=== PATIENT | female | born 1955 | race American Indian/Alaskan Native ===

== ENCOUNTER 2021-04-19 09:33 | Emergency (ER) | payer SELFPAY ==
[2021-04-19 09:49] VITALS: BP 144/71
--- NOTE | 2021-04-19 10:20 | Emergency Department Report ---
ED Lower Extremity HPI - General Chief Complaint: Extremity Problem,Nontraumatic Stated Complaint: LEG PAIN Time Seen by Provider: 04/19/21 09:52 Source: patient Mode of arrival: Ambulatory Limitations: No Limitations ED Review of Systems ROS: Stated complaint: LEG PAIN Other details as noted in HPI Comment: All other systems reviewed and negative ED Physical Exam - General Limitations: No Limitations General appearance: alert, in no apparent distress - Head Head exam: Present: atraumatic, normocephalic - Eye Eye exam: Present: normal appearance - ENT ENT exam: Present: mucous membranes moist - Neck Neck exam: Present: normal inspection - Respiratory Respiratory exam: Present: normal lung sounds bilaterally. Absent: respiratory distress - Cardiovascular Cardiovascular Exam: Present: regular rate, normal rhythm. Absent: systolic murmur, diastolic murmur, rubs, gallop - GI/Abdominal GI/Abdominal exam: Present: soft, normal bowel sounds - Extremities Exam Extremities exam: Present: normal inspection - Back Exam Back exam: Present: normal inspection - Neurological Exam Neurological exam: Present: alert, oriented X3 - Psychiatric Psychiatric exam: Present: normal affect, normal mood - Skin Skin exam: Present: warm, dry, intact, normal color. Absent: rash ED Course Vital Signs 04/19/21 09:47 Temperature 97.9 F Pulse Rate 74 Respiratory 20 Rate Blood Pressure 144/71 O2 Sat by Pulse 99 Oximetry Critical care attestation.: If time is entered above; I have spent that time in minutes in the direct care of this critically ill patient, excluding procedure time. ED Disposition Disposition: 01 HOME / SELF CARE / HOMELESS Is pt being admited?: No Does the pt Need Aspirin: No Condition: Stable Time of Disposition: 10:19
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
--- NOTE | 2021-04-19 12:09 | Cat Scan Report ---
. CT head/brain wo con INDICATION / CLINICAL INFORMATION: 65 years Female; ams. TECHNIQUE: Routine CT head without contrast. All CT scans at this location are performed using CT dos e reduction for ALARA by means of automated exposure control. COMPARISON: None. FINDINGS: BRAIN / INTRACRANIAL CONTENTS: No acute hemorrhage, mass effect, midline shift, hydrocephalus, or acu te, large territorial infarct. No signs of significant atrophy or chronic infarct. No significant whi te matter abnormality seen. CRANIOCERVICAL JUNCTION: No significant abnormality. ORBITS: No significant abnormality of visualized orbits. SINUSES / MASTOIDS: Visualized paranasal sinuses and mastoid air cells are essentially clear. ADDITIONAL FINDINGS: Significant, bilateral temporomandibular joint disease seen, as evidenced by fla ttening and irregularity of the condylar heads of the mandible. IMPRESSION: 1. No focal mass, hemorrhage, hydrocephalus, or acute, large territorial infarct. Signer Name: Brooks Day MD, III Signed: 04/19/2021 12:04 PM Workstation Name: [id number]
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
[2021-04-19 13:04] LABS: Basophils % (Auto) 0.2 % (0.0-1.8); Eosinophils # (Auto) 0.1 K/mm3 (0.0-0.4); Eosinophils % (Auto) 1.1 % (0.0-4.3); Hemoglobin 12.9 gm/dl (10.1-14.3); Lymphocytes # (Auto) 1.5 K/mm3 (1.2-5.4); Lymphocytes % (Auto) 17.6 % (13.4-35.0); Mean Corpuscular HGB Conc 32 % (30-34); Mean Corpuscular Volume 87 fl (79-97); Monocytes # (Auto) 0.6 K/mm3 (0.0-0.8); Monocytes % (Auto) 6.7 % (0.0-7.3); Platelet Count 295 K/mm3 (140-440); Red Cell Distribution Width 15.2 % (13.2-15.2)
[2021-04-19 13:14] LABS: Alanine Aminotransferase 11 units/L (7-56); Albumin 4.1 g/dL (3.9-5); BUN/Creatinine Ratio 14; Blood Urea Nitrogen 11 mg/dL (7-17); Calcium 9.4 mg/dL (8.4-10.2); Hemolysis Index 3
[2021-04-19] MEDS ORDERED: cephALEXin 500 MG CAP PO ONE (13:19)
== END 2021-04-19 19:38 | disposition home or self-care (01) ==
LOC: ED 09:33
DX: N39.0 Urinary tract infection, site not specified (principal); R41.0 Disorientation, unspecified
CPT/HCPCS: 36415; 70450; 80053; 85025; 99284

== ENCOUNTER 2021-04-19 21:11 | Emergency (ER) | payer MEDICAID ==
[2021-04-19 23:47] VITALS: BP 136/74
[2021-04-20] MEDS ORDERED: predniSONE 20 MG TAB PO ONE (00:06)
[2021-04-20] MEDS ORDERED: BENZONATATE 100 MG CAP PO ONE (00:06)
--- NOTE | 2021-04-20 00:33 | XRay Report ---
CHEST 1 VIEW INDICATION: cough. COMPARISON: None. FINDINGS: Support devices: None. Heart: Normal. Lungs/Pleura: No acute pulmonary or pleural findings. IMPRESSION: 1. No acute findings. Signer Name: Mohamud Galindo MD Signed: 04/20/2021 12:29 AM Workstation Name: [id number]
[2021-04-20] MEDS ORDERED: ACETAMINOPHEN 500 MG TAB PO ONE (01:25)
--- NOTE | 2021-04-20 01:31 | Emergency Department Report ---
- General Chief Complaint: Upper Respiratory Infection Stated Complaint: CHEST PAIN Source: patient Mode of arrival: Ambulatory Limitations: No Limitations - History of Present Illness Initial Comments: Patient is a 65-year-old -[place] female with no past medical history who presents to the ED with complaint of acute onset persistent nasal and sinus congestion, frontal sinus pressure, fever and chills and persistent dry cough for the last 1 week, worse in the last 2 days. Patient states that she has not been able to sleep because of persistent cough and nasal and sinus congestion. Patient denies dizziness, syncope, chest pain or shortness of breath, nausea and vomiting, diarrhea, dysuria, urinary frequency and urgency, back pain or sore throat. MD Complaint: fever, cough, rhinorrhea, nasal congestion -: Sudden, week(s) (1) Severity: moderate Severity scale (0 -10): 4 Quality: dull, aching Consistency: constant Improves With: nothing Worsens With: nothing Associated Symptoms: denies other symptoms, fever, chills, myalgias, rhinorrhea, nasal congestion. denies: diaphoresis, headache, sore throat, stiff neck, chest pain, shortness of breath, abdominal pain, nausea, vomiting, diarrhea, dysuria, rash, confusion, right sweats, epistaxis, hoarseness, other Treatments Prior to Arrival: none - Related Data Previous Rx's Medication Instructions Recorded Last Taken Type Acetaminophen [Tylenol] 500 mg PO Q6HR PRN #30 tablet 04/20/21 Unknown Rx Azithromycin [Zithromax Z-SOCORRO] 250 mg PO DAILY #6 tab 04/20/21 Unknown Rx Benzonatate [Tessalon Perles] 100 mg PO Q8HR #30 cap 04/20/21 Unknown Rx Cetirizine HCl [Zyrtec 10mg tab] 10 mg PO DAILY #30 tab 04/20/21 Unknown Rx predniSONE [Deltasone] 40 mg PO QDAY #10 tab 04/20/21 Unknown Rx Allergies Allergy/AdvReac Type Severity Reaction Status Date / Time aspirin Allergy Rash Verified 04/19/21 23:24 ED Review of Systems ROS: Stated complaint: CHEST PAIN Other details as noted in HPI Constitutional: fever, malaise, weakness. denies: chills Eyes: denies: eye pain, eye discharge, vision change ENT: congestion. denies: ear pain, throat pain Respiratory: cough. denies: shortness of breath, wheezing Cardiovascular: denies: chest pain, palpitations Endocrine: no symptoms reported Gastrointestinal: denies: abdominal pain, nausea, vomiting, diarrhea Genitourinary: denies: urgency, dysuria, discharge Musculoskeletal: denies: back pain, joint swelling, arthralgia Skin: denies: rash, lesions Neurological: denies: headache, weakness, paresthesias Psychiatric: denies: anxiety, depression Hematological/Lymphatic: denies: easy bleeding, easy bruising ED Past Medical Hx - Past Medical History Previous Medical History?: No - Surgical History Past Surgical History?: No - Medications Home Medications: Home Medications Medication Instructions Recorded Confirmed Last Taken Type Acetaminophen [Tylenol] 500 mg PO Q6HR PRN #30 tablet 04/20/21 Unknown Rx Azithromycin [Zithromax Z-SOCORRO] 250 mg PO DAILY #6 tab 04/20/21 Unknown Rx Benzonatate [Tessalon Perles] 100 mg PO Q8HR #30 cap 04/20/21 Unknown Rx Cetirizine HCl [Zyrtec 10mg tab] 10 mg PO DAILY #30 tab 04/20/21 Unknown Rx predniSONE [Deltasone] 40 mg PO QDAY #10 tab 04/20/21 Unknown Rx ED Physical Exam - General Limitations: No Limitations General appearance: alert, in no apparent distress - Head Head exam: Present: atraumatic, normocephalic, normal inspection - Eye Eye exam: Present: normal appearance, PERRL, EOMI Pupils: Present: normal accommodation - ENT ENT exam: Present: normal orophraynx, mucous membranes moist, normal external ear exam, other (Grossly congested nasal passages) - Neck Neck exam: Present: normal inspection, full ROM. Absent: tenderness - Respiratory Respiratory exam: Present: normal lung sounds bilaterally. Absent: respiratory distress, wheezes, rales, rhonchi, chest wall tenderness, accessory muscle use, decreased breath sounds, prolonged expiratory - Cardiovascular Cardiovascular Exam: Present: regular rate, normal rhythm, normal heart sounds. Absent: systolic murmur, diastolic murmur, rubs, gallop - GI/Abdominal GI/Abdominal exam: Present: soft, normal bowel sounds. Absent: distended, tenderness, guarding, rebound, hyperactive bowel sounds, hypoactive bowel sounds, mass - Extremities Exam Extremities exam: Present: normal inspection, full ROM, normal capillary refill. Absent: tenderness - Back Exam Back exam: Present: normal inspection, full ROM. Absent: tenderness, CVA tender ness (R), CVA tenderness (L), muscle spasm, paraspinal tenderness, vertebral tenderness - Neurological Exam Neurological exam: Present: alert, oriented X3, CN II-XII intact, normal gait, reflexes normal - Psychiatric Psychiatric exam: Present: normal affect, normal mood - Skin Skin exam: Present: warm, dry, intact, normal color. Absent: rash ED Course Vital Signs 04/19/21 04/20/21 23:24 01:35 Temperature 100.6 F H Pulse Rate 95 H Respiratory 20 14 Rate Blood Pressure 136/74 [Right] O2 Sat by Pulse 97 Oximetry ED Medical Decision Making - Radiology Data Radiology results: report reviewed, image reviewed [facility] [address] [place] [address] XRay Report Signed Patient: SHAQUILLE PERRY MR#: [id number] 9 : 1955 Acct:[id number] Age/Sex: 65 / F ADM Date: 04/19/21 Loc: ED Attending Dr: Ordering Physician: VENTURA EVANS Date of Service: 04/20/21 Procedure(s): XR chest 1V ap Accession Number(s): [id number] cc: VENTURA EVANS Fluoro Time In Minutes: CHEST 1 VIEW INDICATION: cough. COMPARISON: None. FINDINGS: Support devices: None. Heart: Normal. Lungs/Pleura: No acute pulmonary or pleural findings. IMPRESSION: 1. No acute findings. Signer Name: Mohamud Galindo MD Signed: 04/20/2021 12:29 AM Workstation Name: [id number] Transcribed By: CHANTEL Dictated By: Mohamud Galindo MD Electronically Authenticated By: Mohamud Galindo MD Signed Date/Time: 04/20/2128 DD/ TD/TT: - Medical Decision Making This is a 65-year-old -[place] female with no past medical history who presents to the ED with complaint of acute onset persistent nasal and sinus congestion, frontal sinus pressure, fever and chills and persistent dry cough for the last 1 week, worse in the last 2 days. Patient states that she has not been able to sleep because of persistent cough and nasal and sinus congestion. In the ED, patient is alert and oriented x3 and is not in any distress but slightly febrile in triage with a fever of 100.6 F. Chest x-ray showed no acute cardiopulmonary abnormalities or pneumonitis. Patient was treated for cough in the ED, also given oral steroids and Tylenol. On reevaluation, patient's fever resolved, patient is hemodynamically stable and patient was discharged home on medications. Patient was advised to follow-up with her primary care physician in 7 to 10 days for reevaluation or return to the ED immediately if symptoms get worse. - Differential Diagnosis Bronchitis; URI; pneumonia; sinusitis; Critical care attestation.: If time is entered above; I have spent that time in minutes in the direct care of this critically ill patient, excluding procedure time. ED Disposition Clinical Impression: Acute upper respiratory infection Acute bronchitis Qualifiers: Bronchitis organism: other organism Qualified Code(s): J20.8 - Acute bronchitis due to other specified organisms Disposition: HOME / SELF CARE / HOMELESS Is pt being admited?: No Does the pt Need Aspirin: No Condition: Stable Instructions: Cough, Adult, Kicy-jc-[id number], Acute Bronchitis, Adult, [id number], Upper Respiratory Infection, Adult, [id number], Acute Bronchitis (ED) Additional Instructions: Chest x-ray is unremarkable with no acute cardiopulmonary abnormalities or pneumonitis. Therefore take medication with food, drink plenty of fluids and follow-up with your primary care physician in 7 to 10 days for reevaluation or return to the ED immediately if symptoms get worse. Prescriptions: Acetaminophen [Tylenol] 500 mg PO Q6HR PRN #30 tablet PRN Reason: Pain , Severe (7-10) predniSONE [Deltasone] 40 mg PO QDAY #10 tab Benzonatate [Tessalon Perles] 100 mg PO Q8HR #30 cap Azithromycin [Zithromax Z-SOCORRO] 250 mg PO DAILY #6 tab Cetirizine HCl [Zyrtec 10mg tab] 10 mg PO DAILY #30 tab Referrals: [facility] [Provider Group] - 3-5 Days Time of Disposition: 01:27 Print Language: KAZAKH
== END 2021-04-20 01:32 | disposition home or self-care (01) ==
LOC: ED 21:11
DX: J06.9 Acute upper respiratory infection, unspecified (principal); J20.9 Acute bronchitis, unspecified; Z91.09 Other allergy status, other than to drugs and biological substances
CPT/HCPCS: 71045; 99283

== ENCOUNTER 2021-04-30 18:35 | Emergency (ER) | payer MEDICAID ==
--- NOTE | 2021-04-30 21:12 | Event Note ---
ED Screening Note ED Screening Note: 65-year-old female presents to the ED complaining of chest pain. Patient states she was prior to discharge from [place] for chest pain. States she is also homeless. This initial assessment/diagnostic orders/clinical plan/treatment(s) is/are subject to change based on patients health status, clinical progression and re- assessment by fellow clinical providers in the ED. Further treatment and workup at subsequent clinical providers discretion. Patient/guardian urged not to elope from the ED as their condition may be serious if not clinically assessed and managed. Initial orders include: labs ,Ekg and imaging
[2021-04-30 21:19] LABS: Basophils % (Auto) 0.4 % (0.0-1.8); Eosinophils # (Auto) 0.2 K/mm3 (0.0-0.4); Hematocrit 36.1 % (30.3-42.9); Hemoglobin 11.8 gm/dl (10.1-14.3); Lymphocytes # (Auto) 1.9 K/mm3 (1.2-5.4); Lymphocytes % (Auto) 34.3 % (13.4-35.0); Mean Corpuscular HGB Conc 33 % (30-34); Mean Corpuscular Volume 86 fl (79-97); Monocytes # (Auto) 0.7 K/mm3 (0.0-0.8); Monocytes % (Auto) 13.4 % (0.0-7.3); Platelet Count 318 K/mm3 (140-440); Red Blood Count 4.23 M/mm3 (3.65-5.03); Red Cell Distribution Width 15.2 % (13.2-15.2)
[2021-04-30 21:32] LABS: INR 0.87 (0.87-1.13)
[2021-04-30 21:33] LABS: Partial Thromboplastin Time 25.5 Sec. (24.2-36.6)
--- NOTE | 2021-04-30 21:42 | XRay Report ---
XR chest routine 2V INDICATION / CLINICAL INFORMATION: Chest Pain. COMPARISON: 04/20/2021 FINDINGS: SUPPORT DEVICES: None. HEART /PULMONARY VASCULATURE: No significant abnormality. LUNGS / PLEURA: No significant pulmonary or pleural abnormality. No pneumothorax. ADDITIONAL FINDINGS: No significant additional findings. IMPRESSION: 1. No acute findings. Signer Name: Naveen Muñoz MD Signed: 04/30/2021 9:38 PM Workstation Name: [id number]
[2021-04-30 21:45] LABS: Alanine Aminotransferase 12 units/L (7-56); Albumin 3.5 g/dL (3.9-5); Blood Urea Nitrogen 8 mg/dL (7-17); Calcium 8.8 mg/dL (8.4-10.2); Hemolysis Index 4
[2021-04-30 21:52] LABS: BUN/Creatinine Ratio 11
--- NOTE | 2021-04-30 23:49 | Emergency Department Report ---
ED Chest Pain HPI - General Chief Complaint: Chest Pain Stated Complaint: CHEST PAIN Time Seen by Provider: 04/30/21 22:19 Source: patient Mode of arrival: Ambulatory Limitations: No Limitations - History of Present Illness MD Complaint: chest pain -: Gradual, week(s) (1) Onset: during rest Pain Location: epigastric Pain Radiation: none Severity: mild Severity scale (0 -10): 0 Quality: sharp Consistency: intermittent Improves With: nothing Worsens With: nothing re: denies: nausea, vomting, diaphoresis, dyspnea, sense of impending doom Other Symptoms: denies: cough, fever, syncope, rash, acid taste in mouth, leg swelling, palpitations, burping Treatments Prior to Arrival: none Aspirin use within the Past 7 Days: (0) No - Related Data Previous Rx's Medication Instructions Recorded Last Taken Type Acetaminophen [Tylenol] 500 mg PO Q6HR PRN #30 tablet 04/20/21 Unknown Rx Azithromycin [Zithromax Z-SOCORRO] 250 mg PO DAILY #6 tab 04/20/21 Unknown Rx Benzonatate [Tessalon Perles] 100 mg PO Q8HR #30 cap 04/20/21 Unknown Rx Cetirizine HCl [Zyrtec 10mg tab] 10 mg PO DAILY #30 tab 04/20/21 Unknown Rx predniSONE [Deltasone] 40 mg PO QDAY #10 tab 04/20/21 Unknown Rx Allergies Allergy/AdvReac Type Severity Reaction Status Date / Time aspirin Allergy Rash Verified 04/30/21 18:55 Heart Score - HEART Score History: Slightly suspicious EKG: Non-specific Age: 45-65 Risk factors: 1-2 risk factors Troponin: < normal limit HEART Score: 3 - EKG Read Time Time EKG Completed: 23:00 EKG Read Time: 23:00 - Critical Actions Critical Actions: 0-3 pts:0.9-1.7%risk of adverse cardiac event.Candidate for discharge ED Review of Systems ROS: Stated complaint: CHEST PAIN Other details as noted in HPI Constitutional: denies: chills, fever Eyes: denies: eye pain, eye discharge, vision change ENT: denies: ear pain, throat pain Respiratory: denies: cough, shortness of breath, wheezing Cardiovascular: chest pain. denies: palpitations Endocrine: no symptoms reported Gastrointestinal: denies: abdominal pain, nausea, diarrhea Genitourinary: denies: urgency, dysuria, discharge Musculoskeletal: denies: back pain, joint swelling, arthralgia Skin: denies: rash, lesions Neurological: denies: headache, weakness, paresthesias Psychiatric: denies: anxiety, depression Hematological/Lymphatic: denies: easy bleeding, easy bruising ED Past Medical Hx - Past Medical History Previous Medical History?: Yes Hx Hypertension: Yes - Social History Smoking Status: Never Smoker Substance Use Type: None - Medications Home Medications: Home Medications Medication Instructions Recorded Confirmed Last Taken Type Acetaminophen [Tylenol] 500 mg PO Q6HR PRN #30 tablet 04/20/21 04/30/21 Unknown Rx Azithromycin [Zithromax Z-SOCORRO] 250 mg PO DAILY #6 tab 04/20/21 04/30/21 Unknown Rx Benzonatate [Tessalon Perles] 100 mg PO Q8HR #30 cap 04/20/21 04/30/21 Unknown Rx Cetirizine HCl [Zyrtec 10mg tab] 10 mg PO DAILY #30 tab 04/20/21 04/30/21 Unknown Rx predniSONE [Deltasone] 40 mg PO QDAY #10 tab 04/20/21 04/30/21 Unknown Rx ED Physical Exam - General Limitations: No Limitations General appearance: alert, in no apparent distress - Head Head exam: Present: atraumatic, normocephalic - Eye Eye exam: Present: normal appearance - ENT ENT exam: Present: mucous membranes moist - Neck Neck exam: Present: normal inspection - Respiratory Respiratory exam: Present: normal lung sounds bilaterally. Absent: respiratory distress - Cardiovascular Cardiovascular Exam: Present: regular rate, normal rhythm. Absent: systolic murmur, diastolic murmur, rubs, gallop - GI/Abdominal GI/Abdominal exam: Present: soft, normal bowel sounds - Extremities Exam Extremities exam: Present: normal inspection - Back Exam Back exam: Present: normal inspection - Neurological Exam Neurological exam: Present: alert, oriented X3 - Psychiatric Psychiatric exam: Present: normal affect, normal mood - Skin Skin exam: Present: warm, dry, intact, normal color. Absent: rash ED Course Vital Signs 04/30/21 04/30/21 05/01/21 18:52 19:08 01:00 Temperature 98.1 F 98.3 F Pulse Rate 72 77 79 Respiratory 16 20 14 Rate Blood Pressure 150/67 Blood Pressure 125/83 161/87 [Left] O2 Sat by Pulse 100 100 100 Oximetry ED Medical Decision Making - Lab Data Result diagrams: 04/30/21 21:08 04/30/21 21:08 - EKG Data -: EKG Interpreted by Me EKG shows normal: sinus rhythm Rate: normal - EKG Data When compared to previous EKG there are: no significant change Interpretation: no acute changes, nonspecific ST-T wave neo - Radiology Data Radiology results: report reviewed - Medical Decision Making feels better, no current cp, trop neg, will d/c home - Differential Diagnosis chest pain, acs Critical care attestation.: If time is entered above; I have spent that time in minutes in the direct care of this critically ill patient, excluding procedure time. ED Disposition Clinical Impression: Chest pain Qualifiers: Chest pain type: other chest pain Qualified Code(s): R07.89 - Other chest pain Disposition: 01 HOME / SELF CARE / HOMELESS Is pt being admited?: No Does the pt Need Aspirin: No Condition: Stable Instructions: Nonspecific Chest Pain, Adult, Nonspecific Chest Pain, Adult, Ivbk-iy-Room Referrals: EMILY ADAM MD [Primary Care Provider] - 3-5 Days
[2021-05-01 01:03] VITALS: BP 161/87
--- NOTE | 2021-05-02 10:42 | Electrocardiograph Report ---
[facility] Test Date: 2021-04-30 Test Time: 19:02:09 Pat Name: SHAQUILLE PERRY Department: Room: Gender: F Director Advertising: JAI : 1955 Requested By: JOJO KING Order Number: [id number] Reading MD: Ney Wick Measurements Intervals [place] Rate: 86 P: 78 [place]: 152 QRS: 70 QRSD: 71 T: 16 QT: 362 QTc: 433 Interpretive Statements Sinus rhythm No previous ECG available for comparison Electronically Signed On 05-02-2021 10:42:03 EDT by Ney Wick
--- NOTE | 2021-05-02 10:44 | Electrocardiograph Report ---
[facility] Test Date: 2021-04-30 Test Time: 22:42:02 Pat Name: SHAQUILLE PERRY Department: Room: Gender: F Salad Maker: SONALI : 1955 Requested By: JOJO KING Order Number: [id number] Reading MD: Ney Wick Measurements Intervals [place] Rate: 71 P: 81 AK: 167 QRS: 72 QRSD: 88 T: 57 QT: 400 QTc: 434 Interpretive Statements Sinus rhythm Compared to ECG 04/30/2021 19:02:09 No significant changes Electronically Signed On 05-02-2021 10:43:50 EDT by Ney Wick
--- NOTE | 2021-05-02 10:44 | Electrocardiograph Report ---
[facility] Test Date: 2021-04-30 Test Time: 22:42:59 Pat Name: SHAQUILLE PERRY Department: Room: Gender: F Spinning Machine Operator: SONALI : 1955 Requested By: JOJO KING Order Number: [id number] Reading MD: Ney Wick Measurements Intervals [place] Rate: 71 P: 74 MN: 166 QRS: 72 QRSD: 87 T: 45 QT: 410 QTc: 446 Interpretive Statements Sinus rhythm Compared to ECG 04/30/2021 19:02:09 No significant changes Electronically Signed On 05-02-2021 10:43:54 EDT by Ney Wick
== END 2021-05-01 01:03 | disposition home or self-care (01) ==
LOC: ED 18:35
DX: R07.89 Other chest pain (principal); R10.13 Epigastric pain; I10 Essential (primary) hypertension; Z88.6 Allergy status to analgesic agent; Z79.899 Other long term (current) drug therapy
CPT/HCPCS: 36415; 71046; 80053; 83690; 84484; 85025; 85379; 85610; 85730; 93005; 99284

== ENCOUNTER 2021-05-22 23:55 | Emergency (ER) | payer MEDICAID ==
[2021-05-23 00:01] VITALS: BP 142/76
--- NOTE | 2021-05-23 01:07 | Emergency Department Report ---
ED General Adult HPI - General Chief complaint: Sore Throat Stated complaint: SCRATCHY THROAT Time Seen by Provider: 05/23/21 00:53 Source: patient Mode of arrival: Ambulatory Limitations: No Limitations - History of Present Illness Initial comments: Chief complaint: Scratchy throat, I am dizzy, and I need to speak to a social services coordinator about housing. The patient is a 65-year-old female. She has presented to this department multiple times in the past few months. She has had extensive medical work-ups here in this emergency room, including x-ray of the chest, noncontrast CT scan of the brain, appropriate laboratory studies, and multiple EKGs. Today, the patient presents to the ER today with a complaint of scratchy throat, without cough, chronic arthralgias, nonspecific dizziness, and request to speak to a renal case managertennis centre manager worker about homeless fpc housing. The patient denies homicidality and suicidality. The patient denies intentional overdose. Patient denies bright red blood per rectum. Patient denies focal extremity weakness and numbness. Location: mouth, left, upper extremity Quality: aching Consistency: intermittent Improves with: rest Worsens with: movement - Related Data Previous Rx's Medication Instructions Recorded Last Taken Type Acetaminophen [Tylenol] 500 mg PO Q6HR PRN #30 tablet 04/20/21 Unknown Rx Azithromycin [Zithromax Z-SOCORRO] 250 mg PO DAILY #6 tab 04/20/21 Unknown Rx Benzonatate [Tessalon Perles] 100 mg PO Q8HR #30 cap 04/20/21 Unknown Rx Cetirizine HCl [Zyrtec 10mg tab] 10 mg PO DAILY #30 tab 04/20/21 Unknown Rx predniSONE [Deltasone] 40 mg PO QDAY #10 tab 04/20/21 Unknown Rx Allergies Allergy/AdvReac Type Severity Reaction Status Date / Time aspirin Allergy Rash Verified 04/30/21 18:55 ED Review of Systems ROS: Stated complaint: SCRATCHY THROAT Other details as noted in HPI Constitutional: denies: fever Eyes: denies: eye discharge ENT: throat pain, congestion Respiratory: denies: cough Cardiovascular: edema (Chronic lower extremity edema). denies: chest pain Gastrointestinal: denies: abdominal pain Musculoskeletal: arthralgia, myalgia Neurological: weakness (Generalized weak) Psychiatric: denies: homicidal thoughts, suicidal thoughts ED Past Medical Hx - Past Medical History Previous Medical History?: Yes Hx Hypertension: Yes Additional medical history: CHRONIC RIGHT KNEE PAIN - Surgical History Past Surgical History?: No - Social History Smoking Status: Current Every Day Smoker Substance Use Type: None - Medications Home Medications: Home Medications Medication Instructions Recorded Confirmed Last Taken Type Acetaminophen [Tylenol] 500 mg PO Q6HR PRN #30 tablet 04/20/21 04/30/21 Unknown Rx Azithromycin [Zithromax Z-SOCORRO] 250 mg PO DAILY #6 tab 04/20/21 04/30/21 Unknown Rx Benzonatate [Tessalon Perles] 100 mg PO Q8HR #30 cap 04/20/21 04/30/21 Unknown Rx Cetirizine HCl [Zyrtec 10mg tab] 10 mg PO DAILY #30 tab 04/20/21 04/30/21 Unknown Rx predniSONE [Deltasone] 40 mg PO QDAY #10 tab 04/20/21 04/30/21 Unknown Rx ED Physical Exam - General Limitations: No Limitations General appearance: alert, in no apparent distress, obese - Head Head exam: Present: atraumatic, normocephalic - Eye Eye exam: Present: normal appearance, PERRL, EOMI. Absent: nystagmus - ENT ENT exam: Present: normal exam, normal orophraynx, mucous membranes moist, TM's normal bilaterally, normal external ear exam - Neck Neck exam: Present: normal inspection, full ROM. Absent: tenderness, meningismus - Respiratory Respiratory exam: Present: normal lung sounds bilaterally. Absent: respiratory distress, wheezes, rales, rhonchi, stridor, decreased breath sounds - Cardiovascular Cardiovascular Exam: Present: regular rate, normal rhythm, normal heart sounds. Absent: bradycardia, tachycardia, irregular rhythm, systolic murmur, diastolic murmur, rubs, gallop - GI/Abdominal GI/Abdominal exam: Present: soft. Absent: distended, tenderness, guarding, rebound, rigid, pulsatile mass - Extremities Exam Extremities exam: Present: normal inspection, full ROM, pedal edema (2+ edema in the bilateral lower extremity), other (There is no long bony tenderness. The muscular compartments are soft. The pelvis is stable. There is left-sided lateral and medial knee tenderness, without redness, pus history). Absent: calf tenderness - Back Exam Back exam: Present: normal inspection. Absent: tenderness, CVA tenderness (R), CVA tenderness (L), paraspinal tenderness, vertebral tenderness - Neurological Exam Neurological exam: Present: alert, normal gait (Ambulatory with a walker, and assist.), other (No facial droop. Tongue midline. Extraocular movements intact bilaterally. Facial sensation intact to light touch in V1, V2, V3 distribution bilaterally. 5 and a 5 strength in 4 extremities. Sensation intact to light touch in 4 extremities.) - Psychiatric Psychiatric exam: Absent: homicidal ideation, suicidal ideation - Skin Skin exam: Present: warm, dry, intact, normal color. Absent: rash ED Course Vital Signs 05/22/21 23:58 Temperature 98 F Pulse Rate 78 Respiratory 18 Rate Blood Pressure 142/76 O2 Sat by Pulse 100 Oximetry ED Medical Decision Making - Lab Data Vital Signs 05/22/21 23:58 Temperature 98 F Pulse Rate 78 Respiratory 18 Rate Blood Pressure 142/76 O2 Sat by Pulse 100 Oximetry - EKG Data -: EKG Interpreted by Tx EKG shows normal: sinus rhythm Rate: normal - EKG Data When compared to previous EKG there are: no significant change Interpretation: unchanged when compared t (April 2021) 05/23/21 01:48 The EKG is interpreted at 01: 31 Sinus rhythm, rate 78 bpm. Normal axis, normal P wave axis, motion artifact, high left ventricular voltage/LVH. Not a STEMI. Unchanged from prior - Radiology Data Radiology results: report reviewed, image reviewed Prior imaging studies are reviewed and appreciated - Medical Decision Making Differential diagnosis, including but not limited to: Encounter for medical screening examination, homelessness, case management patient Assessment and plan: 65-year-old female, with multiple complaints. In terms of her "scratchy" throat, she has no exudates, no erythema, no cough, no stridor, no respiratory distress, no lymphadenopathy. Low risk by Centor score for strep. Expectant management and outpatient follow-up. In terms of her complaint of chronic left-sided arthritic knee pain, ambulatory with assistance, has a walker, no redness, pus or streaking. Weightbearing as tolerated, Tylenol Motrin, outpatient follow-up. In terms of her request to speak to a renal case manager, she will be provided a list of homeless fpc resources. Patient seen extensively by case management during recent evaluations here in this emergency room, have also placed case management consult to follow-up on assistance for outpatient social issues. In terms of the patient's complaint of dizziness, her examination is nonfocal, and she has recently had extensive laboratory and radiographic evaluations. I suspect that this patient is presenting for the purposes of secondary gain, such as food, fpc, and housing. It does not appear that she has an emergent medical condition present at this time, she will need to follow-up as an outpatient for her multiple chronic issues which do not appear acutely decompensated at this time Critical care attestation.: If time is entered above; I have spent that time in minutes in the direct care of this critically ill patient, excluding procedure time. ED Disposition Clinical Impression: Case management patient, Homelessness, Arthralgia, Sore throat, Dizziness Disposition: HOME / SELF CARE / HOMELESS Is pt being admited?: No Does the pt Need Aspirin: No Condition: Good Additional Instructions: Participate in weightbearing as tolerated. Alternate ice packs and heat packs as needed for physical pain. Use salt water gargles liberally as needed for throat pain. Patient may take [id number] Tylenol or ibuprofen as needed for joint pain and throat pain. Follow-up with your primary care doctor within the next week. Case management consultation is ordered to assist the patient with housing issues. Patient will also receive a list of local homeless shelters. Please return to the emergency room right away with new pain, worsened pain, migration of pain, projectile vomiting, change in mental status, confusion, inability tolerate liquid feeds, new, worsened or different symptoms not present on the initial emergency room evaluation Referrals: [facility] [Provider Group] - 3-5 Days [facility] [Outside] - 3-5 Days [facility] [Outside] - 3-5 Days
--- NOTE | 2021-05-23 15:20 | Electrocardiograph Report ---
[facility] Test Date: 2021-05-23 Test Time: 01:31:05 Pat Name: SHAQUILLE PERRY Department: Room: Gender: F Computer Network Support Specialist: SONALI : 1955 Requested By: CARINE PIEDRA Order Number: [id number] Reading MD: Izaiah Bonner Measurements Intervals [place] Rate: 78 P: 75 [place]: 149 QRS: 60 QRSD: 79 T: 42 QT: 381 QTc: 435 Interpretive Statements Sinus rhythm NSST'S Compared to ECG 04/30/2021 22:42:59 No significant changes Electronically Signed On 05-23-2021 15:20:20 EDT by Izaiah Bonner
== END 2021-05-23 01:00 | disposition home or self-care (01) ==
LOC: ED 23:55
DX: M25.50 Pain in unspecified joint (principal); J02.9 Acute pharyngitis, unspecified; R42 Dizziness and giddiness; Z59.00 Homelessness unspecified; Z76.89 Persons encountering health services in other specified circumstances; I10 Essential (primary) hypertension; F17.200 Nicotine dependence, unspecified, uncomplicated; Z91.09 Other allergy status, other than to drugs and biological substances
CPT/HCPCS: 93005; 99283